=== PATIENT | male | born 1990 | race Caucasian/White ===

== ENCOUNTER → 2017-03-17 | Outpatient (CLI) | payer BC, OTHER ==
[2017-03-17 08:18] LABS: SPERM MORPHOLOGY SENT TO REFERENC LAB
[2017-03-17 09:22] LABS: ROUND CELL CONC. 2.4 X10^6/mL (<5.1); SA DILUTION FACTOR 3; SA NONMOTILE CONCENTRATION 32.8 X10^6/mL; SA NONMOTILE COUNT1 320; SA NONMOTILE COUNT2 335; SA ROUND CELL COUNT1 23; SA ROUND CELL COUNT2 24
[2017-03-17 09:30] LABS: SA DILUTION CNT 1 352; SA DILUTION CNT 2 358; SA SPERM MOTILE CONC 73.7 X10^6mL; TOTAL SPERM COUNT 383.4 X10^6 (>33.0)
[2017-03-17 09:31] LABS: SPERM PROGRESSION 4
[2017-03-18 07:44] LABS: LUTEINIZING HORMONE 5.3 mIU/mL (1.7-8.6)
[2017-03-18 09:18] LABS: FOLLICLE STIMULATING HORMONE 1.8 mIU/mL (1.5-12.4)
[2017-03-19 10:57] LABS: TESTOSTERONE FREE (DIRECT) 12.6 pg/mL (9.3-26.5)
== END ==
LOC: LAB 07:50
PROVIDERS: ATTEND Urology
DX: E34.52 Partial androgen insensitivity syndrome (principal)
CPT/HCPCS: 36415; 83001; 83002; 84402; 84403; 89320